=== PATIENT | female | born 2000 | race African-American/Black ===

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

== ENCOUNTER 2022-08-04 00:23 | Emergency (ER) | payer OTHER ==
[~2022-08-04] VITALS: Ht 175.3 cm; Wt 126.6 kg
[2022-08-04] MEDS ORDERED: IBUPROFEN 600MG TABLET PO ONE (01:30)
[2022-08-04 01:32] VITALS: BP 139/92
== END 2022-08-04 01:35 | disposition home or self-care (01) ==
LOC: ER 00:23
DX: S63.691A Other sprain of left index finger, initial encounter (principal); X58.XXXA Exposure to other specified factors, initial encounter; Y93.89 Activity, other specified; Y92.89 Other specified places as the place of occurrence of the external cause
CPT/HCPCS: 73130; 81025; 99283